=== PATIENT | female | born 1940 | race Caucasian/White ===

== ENCOUNTER 2022-02-02 13:15 | Inpatient (IN) | payer MEDICARE, OTHER, SELFPAY ==
[2022-02-02 14:25] VITALS: BP 153/63; PULSE 72; RESP 18; TEMP 36.3; O2SAT 98; BMI 34.2
[2022-02-02 15:44] VITALS: BP 153/63; PULSE 72; RESP 14; O2SAT 98
--- NOTE | 2022-02-02 17:25 | NURSING ---
Pt straight cath q6hrs at [facility] for urinary retention. Dr. Sutherland updated new order to Straight cath >350ml and Tamsulosin Daily 0.4mg.
[2022-02-02] MEDS: Potassium Chloride Oral Tablet 10 MEQ PO (18:42)
[2022-02-02] MEDS: Furosemide 20 MG Tablet PO (18:43)
[2022-02-02] MEDS: Amox/Clavulanate 875 MG Tablet PO (18:43)
[2022-02-02 18:44] VITALS: BP 134/53; PULSE 89
[2022-02-02 20:00] VITALS: PULSE 89; RESP 16; O2SAT 98
--- NOTE | 2022-02-02 20:05 | NURSING ---
Assessment completed on patient, dressings changed to BLE, patient tolerated well. Slight drainage noted on area of front left leg, no foul odor noted. Area to left heel left open to air.
[2022-02-02] MEDS: Nystatin Powder 15gm Bottle 1 APPLIC TOPICAL (20:26)
[2022-02-02] MEDS: Tamsulosin HCl 0.4 MG Capsule PO (20:26)
--- NOTE | 2022-02-02 20:50 | HP.PCM_ITS ---
[facility] - General General Date of Admission: 02/02/22 Date of Service: 02/02/22 Chief Complaint: Here for rehab, wound care. HPI Narrative GWEN DANIELS, is a 81 Female who presents with followin01/25/2022 Admit to [facility]. Bilateral lower extremity ulcers, bilateral lower extremity cellulitis, failed outpatient treatment. Arterial study showed moderate PAOD right lower extremity. Severe PAOD left lower extremity. Patient treated with wound care, intravenous antibiotics. Patient underwent left lower extremity angioplasty. Patient had urinary retention, treated with indwelling robles catheter. 02/02/2022 Admit to TCU with debility, wound care, prior to discharge home with . [facility] Home Medications Lactobacillus acidophilus 1 tab PO DAILY Probiotic 02/02/22 [History Last Taken Unknown] allopurinol 100 mg tablet 100 mg PO DAILY Gout 02/02/22 [History Last Taken Unknown] amoxicillin 875 mg-potassium clavulanate 125 mg tablet 1 tab PO BID Antibiotic 02/02/22 [History Last Taken Unknown] aspirin 81 mg tablet 81 mg PO DAILY Heart 02/02/22 [History Last Taken Unknown] clopidogrel 75 mg tablet 75 mg PO DAILY Blood Thinner 02/02/22 [History Last Taken Unknown] collagenase clostridium histo. 250 unit/gram topical ointment 1 applic topical DAILY Wounds 02/02/22 [History Last Taken Unknown] ferrous sulfate 325 mg (65 mg iron) tablet 325 mg DAILY Supplement 02/02/22 [History Last Taken Unknown] furosemide 20 mg tablet 20 mg PO BID Edema 02/02/22 [History Last Taken Unknown] niacin 100 mg tablet 100 mg PO DAILY Supplement 02/02/22 [History Last Taken Unknown] nystatin 50 million unit oral powder 50,000,000 unit TID Excoriation 02/02/22 [History Last Taken Unknown] potassium chloride 10 mEq tablet,extended release 10 meq PO BID Supplement 02/02/22 [History Last Taken Unknown] Allergy/AdvReac Type Severity Reaction Status Date / Time No Known Allergies Allergy Verified 02/02/22 17:10 Family History no significant family his no significant family history Social History (Updated 02/02/22 @ 20:[address] Valentino Sutherland MD) household members: spouse Smoking Status: Never smoker alcohol intake: never substance use type: does not use ROS Constitutional Constitutional: Denies chills, fever(s) or weight gain ENT HEENT: Denies headache(s), nasal congestion or nasal discharge Cardiovascular Cardiovascular: Denies chest pain or palpitations Respiratory/Chest Respiratory/Chest: Denies cough, excessive phlegm production or shortness of breath with exertion Gastrointestinal Gastrointestinal: Denies abdominal pain, nausea or vomiting Genitourinary Genitourinary: Denies dysuria Musculoskeletal Musculoskeletal: Denies joint pain or joint swelling Integumentary Integumentary: Denies rash or wounds Neurologic Neurologic: Denies focal weakness, numbness or tingling Psychiatric Psychiatric: Denies anxiety, auditory hallucinations, depression, homicidal ideation or suicidal ideation Vital Signs Vital Signs Vital Signs: 02/02/22 14:25 02/02/22 15:44 02/02/22 18:44 Temperature 97.3 F L Temperature Source Temporal Pulse Rate 72 72 89 Respiratory Rate 18 14 Blood Pressure 153/63 H 153/63 H 134/53 H Blood Pressure Mean 93 93 80 Blood Pressure Source Monitor Monitor Monitor Blood Pressure Position Semi-Fowlers Semi-Fowlers Semi-Fowlers Blood Pressure Location Left Arm Left Arm Right Arm Pulse Ox 98 98 Oxygen Delivery Method Room Air Room Air Weight Weight: 90.6 kg Body Mass Index (BMI) 34.2 Physical Exam Const alert General Appearance: cooperative HEENT normocephalic Eyes PERRL and EOMs intact bilaterally Neck supple, no JVD and no carotid bruits Resp normal respiratory effort, normal air movement and clear to auscultation bilaterally Cardio regular rate and regular rhythm GI normal to inspection, nondistended, normoactive bowel sounds, non-tender and non-distended Extremity normal capillary refill Extremity Narrative: Bilateral lower extremity dressed. General Extremity: Negative for edema Skin no rashes or lesions noted General Skin Exam: no breakdown Psych affect normal Appearance: appropriate Results Lab / Micro Data Micro: Microbiology 02/02/22 15:40 Nasal Secretion SARS-CoV-2 Antigen (Rapid) - Final Assessment & Plan Assessment/Plan (1) Debility: (2) Bilateral leg ulcer: (3) Bilateral lower leg cellulitis: (4) Peripheral arterial occlusive disease: (5) Gastroesophageal reflux disease: (6) Hypokalemia: PLAN: Plan 81 year old female with below past medical history hospitalized for bilateral lower extremity cellulitis, bilateral lower extremity ulcers, peripheral arterial occlusive disease requiring left lower extremity angioplasty, admitted to TCU with debility, here for rehabilitation, strengthening, wound care, prior to discahrge home with . * Debility - PT/OT. * Pain - Tylenol 1000mg q6h prn pain (1-10). * Bowel - Senna/colace 1 tablet bid, Dulcolax 10mg daily prn. * Adult immunization - Administer pneumonia vaccine, covid19 vaccine, flu vaccine. * DVT prophylaxis - Hold, already on dual antiplatelet therapy. * Bilateral lower extremity cellulitis - Augmentin 875mg bid thru 02/05/2022. * Bilateral lower extremity wounds - Santyl topical daily, consult wound nurse. * Peripheral arterial occlusive disease s/p left lower extremity angioplasty - Aspirin 81mg daily, Plavix 75mg daily. * Nutrition - Ensure Compact 118ml tidcm. * Iron deficiency anemia - Ferrous sulfate 325mg daily. * Edema - Furosemide 20mg bid. * GI prophylaxis - Lactobacillus 1 tablet daily. * Tinea Corporis - Nystatin powder topical tid. * Hypokalemia - KCL 10meq bidcm. * Urinary retention - Tamsulosin 0.4mg daily, straight cath if PVR > 350ml.
--- NOTE | 2022-02-03 02:02 | NURSING ---
Patient states she feels like her bladder is full, has not voided. Bladder scan showed > 644. Patient straight cath'd with 700mL output. Patient states she has not been able to void since stent was placed in left thigh. Will continue to monitor.
[2022-02-03 05:34] LABS: Absolute Neutrophil Count 2.2 X10^3/uL (2.0-7.7); Basophil# 0.02 X10^3/uL; Basophil% 0.5 % (0-1); Eosinophil# 0.01 X10^3/uL; Eosinophils% 0.3 % (0-5); Hematocrit 27.5 % (37-47); Hemoglobin 8.6 g/dL (12.0-15.0); Lymphocyte % 23.2 % (19-41); Mean Corp Hgb Conc 31.3 g/dL (32-36); Mean Corpuscular Hgb 30.1 pg (27.0-32.0); Mean Corpuscular Volume 96.2 fL (81-99); Mean Platelet Vol. 8.7 fl (6.2-12.0); Monocyte# 0.75 X10^3/uL; Monocyte% 19.3 % (0-10); NRBC Flagged by Analyzer 0 % (0-5); Neutrophil # 2.17 X10^3/uL (2.7-7.7); Neutrophil % 55.9 % (47-70); Platelet Count 481 K/mm3 (150-450); RBC Distribution Width CV 13.3 % (11.6-14.6); RBC Distribution Width SD 46.6 fl (35.1-43.9); Red Blood Count 2.86 M/mm3 (4.2-5.4); White Blood Count 3.9 K/mm3 (4.4-11.0)
[2022-02-03] MEDS: Clopidogrel Bisulfate 75 MG Tablet PO (06:05)
[2022-02-03] MEDS: Furosemide 20 MG Tablet PO ×2 (06:05→17:52)
[2022-02-03] MEDS: Collagenase 30gm Tube 1 APPLIC TOPICAL (06:06)
[2022-02-03] MEDS: Nystatin Powder 15gm Bottle 1 APPLIC TOPICAL ×3 (06:33→20:36)
[2022-02-03 06:39] LABS: Anion Gap 7 (5-15); BUN 13 mg/dL (7-18); BUN/Creat Ratio 10.6 RATIO (10-20); Calcium,Total 8.4 mg/dL (8.5-10.1); Chloride 106 mmol/L (98-107); Creatinine, Serum 1.23 mg/dL (0.55-1.02); EST Glomerular Filtration Rate 45 mL/min (>60); Est Glom Filt Rate - Afr Amer 54 mL/min (>60); Estimated Creatinine Clearance 32.03 ml/min; Glucose 83 mg/dL (74-106); Sodium Level 140 mmol/L (136-145)
[2022-02-03] MEDS: Potassium Chloride Oral Tablet 10 MEQ PO ×2 (08:15→17:53)
[2022-02-03] MEDS: Aspirin 81 MG TAB.CHEW PO (08:15)
[2022-02-03] MEDS: Amox/Clavulanate 875 MG Tablet PO ×2 (08:15→17:53)
--- NOTE | 2022-02-03 10:53 | CASEMGMT ---
Social Work Met with patient to complete initial assessment. Introduced self and role. Verified/updated contacts. Discussed code status and MOLST form. Pt confirmed full code. MOLST completed, placed in Dr folder. Educated to Medicare benefit. Pt had recent, previous stay at [facility] [place], left AMA, used 7 days. Pt admits on Day 8 and encouraged to contact secondary insurance to ensure copay coverage. Pts goal is to return home with . SW to continue to follow for DC planning. HELIO Hanson SPORTS RECRUITER
[2022-02-03] MEDS: Tuberculin,Purif.prot.deriv. 50 TU/ML Vial 0.1 ML ID (10:58)
[2022-02-03] MEDS: Ferrous Sulfate 325 MG Tablet PO (11:03)
--- NOTE | 2022-02-03 13:46 | WOUNDNOTE ---
wound photo: left lower leg/foot
--- NOTE | 2022-02-03 13:47 | WOUNDNOTE ---
wound photo: left lower leg
--- NOTE | 2022-02-03 13:48 | WOUNDNOTE ---
wound photo: left plantar heel
--- NOTE | 2022-02-03 13:48 | WOUNDNOTE ---
wound photo: right lower leg
--- NOTE | 2022-02-03 13:49 | WOUNDNOTE ---
wound photo: bilateral lower legs
[2022-02-03 15:20] VITALS: BP 112/51; PULSE 75; RESP 14; TEMP 36.6; O2SAT 97
--- NOTE | 2022-02-03 15:47 | CHAPLAIN ---
Type of Pastoral Visit _x__ Initial Visit ___ Follow-up Visit ___ On-call Visit ___ General Patient Visit ___ Spiritual Assessment ___ Family Conference ___ Bereavement ___ Rapid Response ___ Code Blue ___ Other (describe below) Pastoral Care Referral From _x__ Patient ___ Family ___ Nurse ___ Physician ___ Machine Etcher ___ Pc Network Technician ___ Other (describe below) Sacrament/Intervention _x__ Active listening ___ Anointing ___ Yazidism ___ Bereavement ___ Communion ___ Liz exploration ___ _x__ Life review _x__ Prayer ___ Reconciliation ___ Sacrament of Sick _x__ Supportive presence ___ Wedding ___ Other (describe below) Pastoral Comments patient is very welcoming; pt tells her story of long and inadequate healing of her legs; pt now feels that she has some hope for recovery and anticipates that therapy will be beneficial; pt is from [place] and sought out this TCU because of five star ratings; pt has family support and a new great granddaughter which is 'a special delight'; pt is of the [employer] but has not been active in recent years; pt would request other visits and prayer from this professor of law;
[2022-02-03] MEDS: Tamsulosin HCl 0.4 MG Capsule PO (17:54)
[2022-02-03] MEDS: Menthol/Lanolin/Calamine/Znox 113 GM Tube 1 APPLIC TOPICAL (17:54)
[2022-02-03] MEDS: Acetaminophen 500 MG Tablet 1000 MG PO (20:59)
[2022-02-04] MEDS: Menthol/Lanolin/Calamine/Znox 113 GM Tube 1 APPLIC TOPICAL ×2 (05:15→18:13)
[2022-02-04] MEDS: Furosemide 20 MG Tablet PO (05:15)
[2022-02-04] MEDS: Clopidogrel Bisulfate 75 MG Tablet PO (05:15)
[2022-02-04] MEDS: Acetaminophen 500 MG Tablet 1000 MG PO (05:15)
[2022-02-04] MEDS: Nystatin Powder 15gm Bottle 1 APPLIC TOPICAL ×3 (05:15→20:40)
[2022-02-04] MEDS: Aspirin 81 MG TAB.CHEW PO (08:06)
[2022-02-04] MEDS: Amox/Clavulanate 875 MG Tablet PO ×2 (08:06→18:11)
[2022-02-04] MEDS: Potassium Chloride Oral Tablet 10 MEQ PO ×2 (08:06→18:11)
[2022-02-04 09:30] VITALS: BP 79/41; PULSE 97; RESP 20; TEMP 36.3; O2SAT 95
--- NOTE | 2022-02-04 09:51 | NURSING ---
pt with therapy on commode, became lightheaded, BP low. assisted pt back to bed. HOB elevated. call light in reach. no LOC
[2022-02-04 09:52] VITALS: BP 109/61; PULSE 80
--- NOTE | 2022-02-04 09:53 | NURSING ---
rechecked BP after pt laying in bed, inserted robles, pt tolerated well. HOB elevated, denies dizzyness. call light in reach. will continue to monitor.
[2022-02-04 09:54] VITALS: PULSE 80; RESP 18; O2SAT 95
--- NOTE | 2022-02-04 11:47 | NURSING ---
pt refusing to go see scheduled appt with dr landry in [place], dr pickens updated, new order to consult Janett. pt notified of dr landry appt cancelled by staff
[2022-02-04] MEDS: Ferrous Sulfate 325 MG Tablet PO (12:24)
[2022-02-04] MEDS: Juven (unflavored) Packet 1 PACKET PO (12:25)
--- NOTE | 2022-02-04 12:36 | PCM.PN.DRR ---
TCU RX Drug Regimen Review Subjective: [] TCU Admission Objective: Allergies No Known Allergies Allergy (Verified 02/02/22 17:10) Current Medications Generic Name Dose Route Start Last Admin Trade Name Maria M PRN Reason Stop Dose Admin Acetaminophen 1,000 mg 02/02/22 21:16 02/04/22 05:15 Acetaminophen 500 Mg Tablet PO 1,000 mg Q6H PRN PRN Administration Pain Score 1-10 Amoxicillin/Clavulanate Potassium 875 mg 02/02/22 18:00 02/04/22 08:06 Amox/Clavulanate 875 Mg Tablet PO 02/05/22 06:01 875 mg BIDCM [facility] Administration Aspirin 81 mg 02/03/22 08:00 02/04/22 08:06 Aspirin 81 Mg Tab.Chew PO 81 mg BREAKFAST [facility] Administration Bisacodyl 10 mg 02/02/22 21:16 Bisacodyl 5 Mg Tablet PO DAILY PRN Constipation Calamine/Phenol 1 applic 02/03/22 18:00 02/04/22 05:15 Menthol/Lanolin/Calamine/Znox 113 Gm Tube TOPICAL 1 applic BID [facility] Administration Protocol Clopidogrel Bisulfate 75 mg 02/05/22 08:00 Clopidogrel Bisulfate 75 Mg Tablet PO DAILY@0800 [facility] Ferrous Sulfate 325 mg 02/03/22 12:00 02/04/22 12:24 Ferrous Sulfate 325 Mg Tablet PO 325 mg LUNCH [facility] Administration L-Arginine/L-Glutamine/Calcium HMB 1 packet 02/04/22 12:00 02/04/22 12:25 Kali (Unflavored) Packet PO 1 packet 1200,1700 [facility] Administration Lactobacillus Acidophilus 1 tablet 02/05/22 08:00 Lactobacillus Acidophilus PO DAILY@0800 JOHN Nystatin 1 applic 02/02/22 22:00 02/04/22 05:15 Nystatin Powder 15gm Bottle TOPICAL 02/11/22 06:00 1 applic TID [facility] Administration Protocol Potassium Chloride 10 meq 02/02/22 18:00 02/04/22 08:06 Potassium Chloride Oral Tablet 10 Meq PO 10 meq BIDCM [facility] Administration Senna/Docusate Sodium 1 tablet 02/02/22 21:30 02/04/22 10:00 Senna/Docusate Sodium 1 Tablet PO Not Given BID [facility] Tamsulosin HCl 0.4 mg 02/02/22 17:30 02/03/22 17:54 Tamsulosin Hcl 0.4 Mg Capsule PO 0.4 mg DAILY@1730 JOHN Administration Tuberculin PPD 0.1 ml 02/10/22 10:00 Tuberculin,Purif.Prot.Deriv. 50 Tu/Ml Vial ID 02/10/22 10:01 X1 ONE Problem List (Last Reviewed 02/02/22 @ 20:[address] Valentino Sutherland MD) Hypokalemia (Acute) Gastroesophageal reflux disease (Acute) Peripheral arterial occlusive disease (Acute) Bilateral lower leg cellulitis (Acute) Bilateral leg ulcer (Acute) Debility (Acute) Vital Signs Temp Pulse Resp BP Pulse Ox O2 Del Method 97.3 F L 80 18 109/61 95 Room Air 02/04/22 09:30 02/04/22 09:54 02/04/22 09:54 02/04/22 09:52 02/04/22 09:54 02/04/22 09:54 Oxygen Delivery Method Room Air Weight: 90.6 kg Body Mass Index (BMI) 34.2 Sodium 140 mmol/L (136-145) 02/03/22 05:15 Potassium 4.0 mmol/L (3.5-5.1) 02/03/22 05:15 Chloride 106 mmol/L (98-107) 02/03/22 05:15 Carbon Dioxide 27.0 mmol/L (21.0-32.0) 02/03/22 05:15 Anion Gap 7 (5-15) 02/03/22 05:15 BUN 13 mg/dL (7-18) 02/03/22 05:15 Creatinine 1.23 mg/dL (0.55-1.02) H 02/03/22 05:15 Est GFR (MDRD) Af Amer 54 mL/min (>60) L 02/03/22 05:15 Est GFR (MDRD) Non-Af 45 mL/min (>60) L 02/03/22 05:15 BUN/Creatinine Ratio 10.6 RATIO (10-20) 02/03/22 05:15 Glucose 83 mg/dL (74-106) 02/03/22 05:15 Assessment/Plan: 1) Bowel: Bisacodyl 10mg po daily prn for constpation, Senna/Docusate 1 tablet po bid. Please continue to monitor prn usage and for signs/symptoms of constipation/diarrhea. --PRN note: there have been 0 administrations of Bisacodyl to date 2) Pain: Acetaminophen 1000mg po q6h prn for pain 1-10. Please continue to monitor prn usage and for signs/symptoms of increased pain. --PRN Note: there have been 2 administrations of Acetaminophen to date 3) Hypokalemia: Potassium Chloride 10meq po bid with food. Pts K+ on 01/29/22 was within normal limits at 4.0. Please continue to monitor pts potassium level. Thanks 4) Edema: Furosemide 20mg po bid. Furosemide 20mg was recently dc'd (02/04/22). Please continue to monitor for signs/symptoms of edema/water rention. Pts average bp while on Furosemide was 123.3/53.3. Please continue to monitor pts blood pressure. 5) Urinary Retention: Tamsulosin 0.4mg po daily, Straight Cath if PVR >350ml. Pt is currently straight cathed. Last documented PVR was 653mls on 02/04/22 at 0500. 6) Bilateral Lower Extremity Cellulitis: Augmentin 875mg po bid with food thru 02/05/22. Pt has a calculated CrCl of 40.43mls/min using an adjusted body weight of 69kg. Please continue to monitor for signs/symptoms of non healing cellulitis. 7) Iron Deficiency Anemia: Ferrous Sulfate 325mg po at lunch. Please continue monitor for signs/symptoms of constipation. Please continue to monitor pts labs. 8) Peripheral Artery Occlusive Disease: Aspirin 81mg po daily, Plavix 75mg po daily. Pts Hct and Hgb are 8.6 and 27.5 respectively, and pts Plt are 481. Please continue to monitor labs and for signs/symptoms of bleeding. 9) Bilateral Lower Extremity Wounds: Santyl Ointment topically daily. See wound nurse documentation from 02/03/22. Stasis Dermatitis vs Cellulitis. 10) GI Prophylaxis: Lactobacillus 1 po daily. Please continue to monitor for signs/symptoms of constipation/diarrhea. Assessment/Plan for indications treated with psychotropic medications: N/A Medical chart and medication regimen reviewed. The following medication irregularities or issues were identified: 1) Pt has refused all doses of Senna/Docusate to date. Please consider changing to prn usage. Thanks 2) Please re evaluate the continued use of Tamsulosin 0.4mg po daily for urinary retention while the pt is catheterized. Thanks Date of Note:: 02/04/22
--- NOTE | 2022-02-04 12:42 | CON.PCM_ITS ---
Assessment & Plan Assessment/Plan (1) Urinary retention: PLAN: continue flomax urine culture plan for trial of void when more ambulatory avoid constipation may have enough prolapse that it contributes to her retention, this will need to be further evaluated in the office HPI Consult Data Date of Consult: 02/04/22 HPI Narrative Reason for Consultation: urinary retention HPI Narrative: GWEN DANIELS, is a 81 F who is here for rehabilitation after cellulitis and vascular procedures. She has history of pelvic organ prolapse. She has never had retention of urine, urinary tract infections or blood in urine. She has never been seen by urology in the past. She does have some incontinence as well. She is not having constipation. She is not very ambulatory at present due to orthostatic hypotension. Per nursing staff the residuals with straight cath were 600cc. [facility] Medical History (Updated 02/04/22 @ 12:[address] Erika Rowland MD) Urinary retention Home Medications Lactobacillus acidophilus 1 tab PO DAILY Probiotic 02/02/22 [History Last Taken Unknown] allopurinol 100 mg tablet 100 mg PO DAILY Gout 02/02/22 [History Last Taken Unknown] amoxicillin 875 mg-potassium clavulanate 125 mg tablet 1 tab PO BID Antibiotic 02/02/22 [History Last Taken Unknown] aspirin 81 mg tablet 81 mg PO DAILY Heart 02/02/22 [History Last Taken Unknown] clopidogrel 75 mg tablet 75 mg PO DAILY Blood Thinner 02/02/22 [History Last Taken Unknown] collagenase clostridium histo. 250 unit/gram topical ointment 1 applic topical DAILY Wounds 02/02/22 [History Last Taken Unknown] ferrous sulfate 325 mg (65 mg iron) tablet 325 mg DAILY Supplement 02/02/22 [History Last Taken Unknown] furosemide 20 mg tablet 20 mg PO BID Edema 02/02/22 [History Last Taken Unknown] niacin 100 mg tablet 100 mg PO DAILY Supplement 02/02/22 [History Last Taken Unknown] nystatin 50 million unit oral powder 50,000,000 unit TID Excoriation 02/02/22 [History Last Taken Unknown] potassium chloride 10 mEq tablet,extended release 10 meq PO BID Supplement 02/02/22 [History Last Taken Unknown] Allergy/AdvReac Type Severity Reaction Status Date / Time No Known Allergies Allergy Verified 02/02/22 17:10 Family History no significant family his Social History household members: spouse Smoking Status: Never smoker alcohol intake: never substance use type: does not use ROS Constitutional Constitutional: Denies chills or fever(s) Eyes Eyes: Reports systems reviewed and no addt'l complaints, except as documented ENT HEENT: Reports systems reviewed and no addt'l complaints, except as documented Cardiovascular Cardiovascular: Denies chest pain, dyspnea or nausea Respiratory/Chest Respiratory/Chest: Denies cough or dyspnea Gastrointestinal Gastrointestinal: Denies abdominal pain or constipation Genitourinary Genitourinary: Reports difficulty urinating and urinary incontinence; Denies dysuria, flank pain, hematuria or urinary urgency Musculoskeletal Musculoskeletal: Reports systems reviewed and no addt'l complaints, except as documented Integumentary Integumentary: Reports as per HPI Neurologic Neurologic: Reports systems reviewed and no addt'l complaints, except as documented Psychiatric Psychiatric: Reports systems reviewed and no addt'l complaints, except as documented Endocrine Endocrinology: Reports systems reviewed and no addt'l complaints, except as do cumented Hematologic/Lymphatic Hematologic/Lymphatic: Reports systems reviewed and no addt'l complaints, except as documented Allergic/Immunologic Allergic/Immunologic: Reports systems reviewed and no addt'l complaints, except as documented Physical Exam Const alert, oriented x3 and no apparent distress General Appearance: cooperative and comfortable HEENT normocephalic and head/scalp atraumatic Eyes conjunctivae normal General Eye: normal appearance of both eyes Neck supple General: trachea midline Lymph Lymphatic: no lymphedema noted Resp normal respiratory effort, normal air movement, no retractions and no use of accessory muscles Cardio regular rate and regular rhythm GI soft to palpation, non-tender and non-distended no CVA tenderness Bladder / Kidney Exam: catheter in place urethral and other urine clear yellow Back/Spine no CVA tenderness Neuro oriented x3, CN's II-XII intact bilaterally and moves all extremities Psych mental status grossly normal Lab / Micro Data Result Diagrams: 02/03/22 05:15 02/03/22 05:15
--- NOTE | 2022-02-04 13:32 | NURSING ---
dr Rowland in to see pt, new orders received.
--- NOTE | 2022-02-04 14:40 | NURSING ---
urine sent to lab via [facility] cath for culture per dr vázquez
[2022-02-04 15:12] VITALS: BP 114/58; PULSE 77; RESP 14; TEMP 36.6; O2SAT 97
[2022-02-04] MEDS: Tamsulosin HCl 0.4 MG Capsule PO (18:11)
[2022-02-05] MEDS: Menthol/Lanolin/Calamine/Znox 113 GM Tube 1 APPLIC TOPICAL ×2 (05:07→17:55)
[2022-02-05] MEDS: Nystatin Powder 15gm Bottle 1 APPLIC TOPICAL ×3 (05:08→20:18)
[2022-02-05 05:40] LABS: Hematocrit 28.9 % (37-47); Hemoglobin 9.1 g/dL (12.0-15.0)
[2022-02-05] MEDS: Aspirin 81 MG TAB.CHEW PO (08:58)
[2022-02-05] MEDS: Potassium Chloride Oral Tablet 10 MEQ PO ×2 (08:58→17:53)
[2022-02-05] MEDS: Clopidogrel Bisulfate 75 MG Tablet PO (08:59)
[2022-02-05 10:00] VITALS: PULSE 82; RESP 18; O2SAT 96
[2022-02-05] MEDS: Ferrous Sulfate 325 MG Tablet PO (12:35)
[2022-02-05] MEDS: Juven (unflavored) Packet 1 PACKET PO (12:36)
[2022-02-05] MEDS: Acetaminophen 500 MG Tablet 1000 MG PO ×2 (13:13→23:51)
[2022-02-05 16:00] VITALS: BP 88/56; PULSE 83; RESP 16; TEMP 36.8; O2SAT 94
[2022-02-05] MEDS: Tamsulosin HCl 0.4 MG Capsule PO (17:53)
[2022-02-06] MEDS: Nystatin Powder 15gm Bottle 1 APPLIC TOPICAL ×3 (06:24→21:28)
[2022-02-06] MEDS: Menthol/Lanolin/Calamine/Znox 113 GM Tube 1 APPLIC TOPICAL ×2 (06:24→21:29)
[2022-02-06] MEDS: Potassium Chloride Oral Tablet 10 MEQ PO ×2 (07:58→17:17)
[2022-02-06] MEDS: Aspirin 81 MG TAB.CHEW PO (07:58)
[2022-02-06] MEDS: Clopidogrel Bisulfate 75 MG Tablet PO (07:59)
--- NOTE | 2022-02-06 10:39 | PCM.PN.GU ---
Subjective Subjective Sitting up in chair, good mood. Ambulation is improving nicely. She is not constipated. We discussed trial of void on Tuesday. I gave her business card, she will follow up after discharge. Objective Data Objective Data Vital Signs: Vital Signs Temp Pulse Resp BP Pulse Ox O2 Del Method 98.2 F 83 16 88/56 L 94 Room Air 02/05/22 16:00 02/05/22 16:00 02/05/22 16:00 02/05/22 16:00 02/05/22 16:00 02/05/22 16:00 Oxygen Delivery Method Room Air Weight: 90.6 kg Body Mass Index (BMI) 34.2 Intake & Output: Intake and Output for Last 24 Hours 02/04/22 02/05/22 02/06/22 23:59 23:59 23:59 Intake Total 600 / 600 600 / 600 240 / 240 Output Total 1300 / 1300 500 / 500 575 / 575 Balance -700 / -700 100 / 100 -335 / -335 Lab / Micro Data Result Diagrams: 02/05/22 05:19 02/03/22 05:15 Micro: Microbiology 02/04/22 14:35 Urine Catheter - [facility] Urine Culture - Final Culture exhibits no growth. 02/02/22 15:40 Nasal Secretion SARS-CoV-2 Antigen (Rapid) - Final Physical Exam Const alert, oriented x3 and no apparent distress HEENT normocephalic and head/scalp atraumatic Eyes General Eye: normal appearance of both eyes Neck supple Chest inspection of chest normal Resp normal respiratory effort, normal air movement and no retractions Cardio regular rate GI non-distended Bladder / Kidney Exam: catheter in place other (urine clear yellow) Neuro oriented x3, CN's II-XII intact bilaterally and moves all extremities Psych mental status grossly normal and thought process normal Assessment & Plan Assessment/Plan (1) Urinary retention: PLAN: plan for trial of void on Tuesday continue supportive care flomax
[2022-02-06] MEDS: Juven (unflavored) Packet 1 PACKET PO (12:48)
[2022-02-06] MEDS: Ferrous Sulfate 325 MG Tablet PO (12:48)
[2022-02-06 14:34] VITALS: BP 116/59; PULSE 80; RESP 16; TEMP 36.3; O2SAT 98
[2022-02-06] MEDS: Tamsulosin HCl 0.4 MG Capsule PO (17:17)
[2022-02-06] MEDS: Acetaminophen 500 MG Tablet 1000 MG PO (21:00)
[2022-02-06 21:32] VITALS: PULSE 83; RESP 16; O2SAT 97
[2022-02-07] MEDS: Nystatin Powder 15gm Bottle 1 APPLIC TOPICAL ×3 (05:55→20:16)
[2022-02-07] MEDS: Menthol/Lanolin/Calamine/Znox 113 GM Tube 1 APPLIC TOPICAL ×2 (05:55→16:46)
[2022-02-07] MEDS: Potassium Chloride Oral Tablet 10 MEQ PO ×2 (08:59→16:44)
[2022-02-07] MEDS: Aspirin 81 MG TAB.CHEW PO (08:59)
[2022-02-07] MEDS: Clopidogrel Bisulfate 75 MG Tablet PO (08:59)
[2022-02-07] MEDS: Ferrous Sulfate 325 MG Tablet PO (12:11)
[2022-02-07 15:40] VITALS: BP 98/50; PULSE 78; RESP 16; TEMP 36.3; O2SAT 95
[2022-02-07] MEDS: Tamsulosin HCl 0.4 MG Capsule PO (16:44)
[2022-02-08] MEDS: Menthol/Lanolin/Calamine/Znox 113 GM Tube 1 APPLIC TOPICAL ×2 (05:41→17:30)
[2022-02-08] MEDS: Nystatin Powder 15gm Bottle 1 APPLIC TOPICAL ×3 (05:41→21:21)
[2022-02-08] MEDS: Acetaminophen 500 MG Tablet 1000 MG PO (08:05)
[2022-02-08] MEDS: Potassium Chloride Oral Tablet 10 MEQ PO ×2 (08:05→17:30)
[2022-02-08] MEDS: Aspirin 81 MG TAB.CHEW PO (08:05)
[2022-02-08] MEDS: Clopidogrel Bisulfate 75 MG Tablet PO (08:06)
[2022-02-08 10:00] VITALS: PULSE 79; RESP 18; O2SAT 98
--- NOTE | 2022-02-08 10:48 | CASEMGMT ---
Addendum entered by Catherine Trejo 02/09/22 14:05: Confirmed [facility] can follow. Addendum entered by Catherine Trejo 02/09/22 09:53: Followed up with [facility], however, [facility] sent it to the office out of pts area. Contacted [facility] - unable to send referral via [facility] to that office - faxed referral. Will await outcome. Addendum entered by Catherine Trejo 02/08/22 14:23: SW collaborated with IDT. IDT recommending continued treatment in TCU, but would agree to DC if pt remains adamant about DC. SW followed up with pt and explained recommendations for continued therapy, pt getting new cath placed, and wound dressing changes. Pt states she can change wound dressing and learn how to empty cath bag, and will continue with therapy at home. Pt remains adamnt about DC and states she will be discharging Tuesday. SW agreed to set DC instead of AMA for services to be in place. Pt denied reviewing skilled HHC list, requesting return to [facility]. No DME needs. Family to transport. SW made referral to [facility] PT/OT/SN via [facility]. Plan: DC home with 02/10, [facility] PT/OT/SN Original Note: Social Work BIMS ( ) and PHQ-9 () completed for MDS assessment. Pt stating multiple times wanting to discharge home - I'm not sick enough to be here, just get me HHC. SW notified therapy to discuss and SW entered nursing communication order to schedule wound teaching with to ensure able to complete at home. Will continue to follow. HELIO HansonW
--- NOTE | 2022-02-08 11:45 | NURSING ---
Asked pt about setting up a time for her spouse to come to unit so that nursing could provide education on dressing change. pt stated she has done all her own dressing for years and that her spouse would not be able to complete any dressing changes. She further stated that she does not need help in completing dressing changes, but if she did, that her daughter lives next door. This nurse offered to have daughter come to unit for education, but pt stated her daughter is very busy and that would not be possible.
[2022-02-08] MEDS: Juven (unflavored) Packet 1 PACKET PO (11:57)
[2022-02-08] MEDS: Ferrous Sulfate 325 MG Tablet PO (11:57)
--- NOTE | 2022-02-08 13:56 | WOUNDNOTE ---
Nursing had changed bilateral lower leg dressings this am. will leave in place.
[2022-02-08 14:32] VITALS: BP 109/57; PULSE 71; RESP 16; TEMP 35.7; O2SAT 95
[2022-02-08] MEDS: Tamsulosin HCl 0.4 MG Capsule PO (17:30)
--- NOTE | 2022-02-08 18:34 | PCM.DC.SUM ---
Providers Date of Admission: 02/02/22 Primary Care Physician: NUVIA BARBOSA Consultations 02/03/22 07:20 Consult: Onc/Wound/warehouse distribution associate Routine Comment: 02/04/22 08:15 Consult: Urology Routine Consulting Provider: Erika Rowland Reason for Consult: urinary retention EMERGENT Consult: No MD Notified: Yes Date Notified: 02/04/22 Time Notified: 11:25 Method of Notification: Verbal Reason For Visit: CELLULITIS Diagnosis Discharge Diagnosis (1) Urinary retention: Status: Acute Code(s): R33.9 - Retention of urine, unspecified Plan 81 year old female with below past medical history hospitalized for bilateral lower extremity cellulitis, bilateral lower extremity ulcers, peripheral arterial occlusive disease requiring left lower extremity angioplasty, admitted to TCU with debility, here for rehabilitation, strengthening, wound care, prior to discahrge home with . Debility - PT/OT. Pain - Tylenol 1000mg q6h prn pain (1-10). Bowel - Senna/colace 1 tablet bid, Dulcolax 10mg daily prn. Adult immunization - Administer pneumonia vaccine, covid19 vaccine, flu vaccine. DVT prophylaxis - Hold, already on dual antiplatelet therapy. Bilateral lower extremity cellulitis - Augmentin 875mg bid thru 02/05/2022. Bilateral lower extremity wounds - Santyl topical daily, consult wound nurse. Peripheral arterial occlusive disease s/p left lower extremity angioplasty - Aspirin 81mg daily, Plavix 75mg daily. Nutrition - Ensure Compact 118ml tidcm. Iron deficiency anemia - Ferrous sulfate 325mg daily. Edema - Furosemide 20mg bid. GI prophylaxis - Lactobacillus 1 tablet daily. Tinea Corporis - Nystatin powder topical tid. Hypokalemia - KCL 10meq bidcm. Urinary retention - Tamsulosin 0.4mg daily, straight cath if PVR > 350ml. Medications at Discharge Home Medications allopurinol 100 mg tablet 100 mg PO DAILY Gout 02/02/22 aspirin 81 mg tablet 81 mg PO DAILY Heart 02/02/22 clopidogrel 75 mg tablet 75 mg PO DAILY Blood Thinner 02/02/22 ferrous sulfate 325 mg (65 mg iron) tablet 325 mg DAILY Supplement 02/02/22 potassium chloride 10 mEq tablet,extended release 10 meq PO BID Supplement 02/02/22 acetaminophen 500 mg tablet 1,000 mg PO Q6H PRN PRN Pain Score 1-10 #0 tabs 02/08/22 arginine 7 gram-glutam 7 gram-CaHMB 1.5 [id number] oral pwd pkt (Kali (with collagen)) 1 packet PO 1200,1700 30 days #60 ea 02/08/22 tamsulosin 0.4 mg capsule 0.4 mg PO DAILY@1730 30 days #30 caps 02/08/22 Hospital Course Operations None Procedures Angiogram (Left lower extremity angioplasty.) Summary of Care Provided Minutes Spent on Discharge: 35 Hospital Course: 81 year old female with below past medical history hospitalized for bilateral lower extremity cellulitis, bilateral lower extremity ulcers, peripheral arterial occlusive disease requiring left lower extremity angioplasty, admitted to TCU with debility, here for rehabilitation, strengthening, wound care, prior to discharge home with . Discharge home with 02/10/2022, [facility] PT/OT/SN. Physical Exam Const alert General Appearance: cooperative HEENT normocephalic Eyes PERRL and EOMs intact bilaterally Neck supple, no JVD and no carotid bruits Resp normal respiratory effort, normal air movement and clear to auscultation bilaterally Cardio regular rate and regular rhythm GI normal to inspection, nondistended, normoactive bowel sounds, non-tender and non-distended Extremity normal capillary refill General Extremity: Negative for edema Skin no rashes or lesions noted General Skin Exam: no breakdown Psych affect normal Appearance: appropriate Weight / BMI Weight Weight: 90.6 kg Body Mass Index (BMI) 34.2 ABG / Lab / Microbiology Data Result Diagrams: 02/05/22 05:19 02/03/22 05:15 Microbiology: Microbiology 02/04/22 14:35 Urine Catheter - Moreno Urine Culture - Final Culture exhibits no growth. 02/02/22 15:40 Nasal Secretion SARS-CoV-2 Antigen (Rapid) - Final D/C Instructions Discharge Diet: No restrictions Discharge Activity: Return to Normal Activity, May Shower and Use Walker May resume sexual activity in: No Restrictions Weight Bearing Status: Weight bearing as tolerated Call your doctor if you observe: Fever of 101 or Higher, Inability to urinate, Inability to have a bowel movement, Shortness of breath, Dizziness, Fainting spells, Swelling in the ankles, Chest pain and Uncontrolled pain Additional Instructions: Discharge home with 02/10/2022, [facility] PT/OT/SN. Please Follow Up With: Erika Rowland MD When: As scheduled. Meaningful Use Info Meaningful Use Diagnoses (Choose all that apply): None applicable Discharge Plan Admission Admit Date/Time: 02/02/22 13:15 Primary Reason for Your Visit: Debility. Attending Provider: Valentino Sutherland Chi Primary Care Provider: NUVIA BARBOSA Consulting Providers: Erika Rowland Instructions Additional Instructions / Restrictions: Discharge home with 02/10/2022, [facility] PT/OT/SN. Discharge Orders/Prescriptions Prescriptions: New acetaminophen 500 mg Tablet 1,000 mg PO Q6H PRN PRN (Reason: Pain Score 1-10) Qty: 0 0RF tamsulosin 0.4 mg Capsule 0.4 mg PO DAILY@1730 30 Days Qty: 30 0RF Kali (with collagen) 7-7-1.5 gram Powder In Packet 1 packet PO 1200,1700 30 Days Qty: 60 0RF Continued clopidogrel 75 mg tablet 75 mg PO DAILY Label Comments: TAKE 1 TABLET BY MOUTH EVERY DAY allopurinol 100 mg tablet 100 mg PO DAILY Label Comments: TAKE 1 TABLET BY MOUTH EVERY DAY ferrous sulfate 325 mg (65 mg iron) tablet 325 mg DAILY Label Comments: TAKE 1 TABLET BY MOUTH EVERY DAY potassium chloride 10 mEq tablet extended release 10 meq PO BID aspirin 81 mg Tablet 81 mg PO DAILY Discontinued Acidophilus Tablet 1 tab PO DAILY collagenase clostridium histo. 250 unit/gram Ointment 1 applic TOPICAL DAILY amoxicillin-pot clavulanate 875-125 mg tablet 1 tab PO BID Label Comments: TAKE 1 TABLET BY MOUTH TWICE A DAY nystatin 50 million unit Powder 50,000,000 unit TID niacin 100 mg Tablet 100 mg PO DAILY furosemide 20 mg tablet 20 mg PO BID Label Comments: TAKE 1 TABLET BY MOUTH TWICE A DAY Referrals / Follow Up: NUVIA BARBOSA [Other] Disposition Disposition (needs filled in before D/C Order can be placed): Home Health Service
[2022-02-09] MEDS: Menthol/Lanolin/Calamine/Znox 113 GM Tube 1 APPLIC TOPICAL ×2 (06:17→16:50)
[2022-02-09] MEDS: Nystatin Powder 15gm Bottle 1 APPLIC TOPICAL ×3 (06:18→20:08)
[2022-02-09] MEDS: Aspirin 81 MG TAB.CHEW PO (08:20)
[2022-02-09] MEDS: Potassium Chloride Oral Tablet 10 MEQ PO ×2 (08:20→16:49)
[2022-02-09] MEDS: Clopidogrel Bisulfate 75 MG Tablet PO (08:20)
[2022-02-09] MEDS: Ferrous Sulfate 325 MG Tablet PO (12:24)
[2022-02-09 14:07] VITALS: BP 98/55; PULSE 79; RESP 16; TEMP 36.2; O2SAT 98
[2022-02-09] MEDS: Tamsulosin HCl 0.4 MG Capsule PO (16:49)
[2022-02-09] MEDS: Acetaminophen 500 MG Tablet 1000 MG PO (20:04)
[2022-02-09 20:20] VITALS: PULSE 82; RESP 16; O2SAT 99
[2022-02-10 05:53] LABS: Absolute Lymphocyte Count 1.42 X10^3/uL (0.83-4.51); Absolute Neutrophil Count 2.1 X10^3/uL (2.0-7.7); Basophil# 0.03 X10^3/uL; Basophil% 0.7 % (0-1); Eosinophil# 0.01 X10^3/uL; Eosinophils% 0.2 % (0-5); Hematocrit 30.5 % (37-47); Hemoglobin 9.6 g/dL (12.0-15.0); Lymphocyte # 1.42 X10^3/ul (0.83-4.51); Lymphocyte % 33.7 % (19-41); Mean Corp Hgb Conc 31.5 g/dL (32-36); Mean Corpuscular Hgb 30.7 pg (27.0-32.0); Mean Corpuscular Volume 97.4 fL (81-99); Monocyte# 0.66 X10^3/uL; Monocyte% 15.7 % (0-10); NRBC Flagged by Analyzer 0 % (0-5); Neutrophil # 2.05 X10^3/uL (2.7-7.7); Neutrophil % 48.7 % (47-70); Platelet Count 339 K/mm3 (150-450); RBC Distribution Width CV 13.8 % (11.6-14.6); RBC Distribution Width SD 48.7 fl (35.1-43.9); Red Blood Count 3.13 M/mm3 (4.2-5.4); White Blood Count 4.2 K/mm3 (4.4-11.0)
[2022-02-10 06:35] LABS: Anion Gap 6 (5-15); BUN 26 mg/dL (7-18); BUN/Creat Ratio 20.2 RATIO (10-20); Calcium,Total 8.9 mg/dL (8.5-10.1); Chloride 110 mmol/L (98-107); Creatinine, Serum 1.29 mg/dL (0.55-1.02); EST Glomerular Filtration Rate 42 mL/min (>60); Est Glom Filt Rate - Afr Amer 51 mL/min (>60); Estimated Creatinine Clearance 30.54 ml/min; Glucose 87 mg/dL (74-106); Potassium 4.2 mmol/L (3.5-5.1); Sodium Level 141 mmol/L (136-145)
[2022-02-10] MEDS: Potassium Chloride Oral Tablet 10 MEQ PO (08:01)
[2022-02-10] MEDS: Aspirin 81 MG TAB.CHEW PO (08:01)
[2022-02-10] MEDS: Nystatin Powder 15gm Bottle 1 APPLIC TOPICAL (08:02)
[2022-02-10] MEDS: Menthol/Lanolin/Calamine/Znox 113 GM Tube 1 APPLIC TOPICAL (08:02)
[2022-02-10] MEDS: Clopidogrel Bisulfate 75 MG Tablet PO (08:03)
[2022-02-10 09:24] VITALS: BP 117/55; PULSE 78; RESP 18; TEMP 36.3; O2SAT 98
--- NOTE | 2022-02-15 10:58 | MDS.RN ---
Information for the mds was obtained from review of the clinical record, interview of resident, staff, and direct observation of resident's care.
== END 2022-02-10 10:00 | disposition home health service (06) | DRG 603 ==
PROVIDERS: Admitting Provider Family Medicine Geriatric Medicine; Visit Provider Family Medicine Geriatric Medicine
DX: L03.115 Cellulitis of right lower limb (principal); L97.919 Non-pressure chronic ulcer of unspecified part of right lower leg with unspecified severity; L97.929 Non-pressure chronic ulcer of unspecified part of left lower leg with unspecified severity; I73.9 Peripheral vascular disease, unspecified; D50.9 Iron deficiency anemia, unspecified; K21.9 Gastro-esophageal reflux disease without esophagitis; E87.6 Hypokalemia; L03.116 Cellulitis of left lower limb; B35.4 Tinea corporis; Z79.82 Long term (current) use of aspirin; Z79.02 Long term (current) use of antithrombotics/antiplatelets; Z79.899 Other long term (current) drug therapy; R33.9 Retention of urine, unspecified
CPT/HCPCS: 36415; 80048; 85014; 85018; 85025; 87086; 87811; 97110; 97162; 97166; 97530; 97535; 97802